=== PATIENT | female | born 1950 | race Caucasian/White ===

== ENCOUNTER 2022-11-24 13:51 | Outpatient (CLI) | payer MEDICARE, BC | END 2022-11-24 13:52 | disposition home or self-care (01) | LOC: CSHCT 13:51 | PROVIDERS: ATTEND Neurological Surgery | DX: M43.16 Spondylolisthesis, lumbar region (principal); M47.816 Spondylosis without myelopathy or radiculopathy, lumbar region | CPT/HCPCS: 72131 ==